=== PATIENT | female | born 1960 | race Caucasian/White ===

== ENCOUNTER 2023-03-16 15:30 | Emergency (ER) | payer BC, MEDICAID ==
[~2023-03-16] VITALS: Ht 162.6 cm; Wt 63.2 kg
[2023-03-16 15:37] VITALS: BP 147/79; PULSE 89; RESP 18; TEMP 98.4; O2SAT 98
[2023-03-16] MEDS ORDERED: BUTA-245 PO (18:19)
[2023-03-16] MEDS ORDERED: ONDA8TAB13 PO (18:22)
== END 2023-03-16 18:30 | disposition home or self-care (01) ==
LOC: ER 15:30
DX: G43.909 Migraine, unspecified, not intractable, without status migrainosus (principal); H53.149 Visual discomfort, unspecified; R11.0 Nausea
CPT/HCPCS: 70450; 99284